=== PATIENT | male | born 1975 | race American Indian/Alaskan Native ===

== ENCOUNTER 2020-11-24 21:57 | Emergency (ER) | payer MEDICAID ==
[2020-11-24 22:17] VITALS: BP 154/96
[2020-11-25] MEDS ORDERED: IBUPROFEN 600 MG TAB PO ONE (00:08)
--- NOTE | 2020-11-25 00:11 | Event Note ---
ED Screening Note Date of service: 11/25/20 Time: 00:05 ED Screening Note: 45-year-old -Chinese male with a past medical history of hypertension presents to the emergency room for pain left neck at the base of the skull. Patient states is been there about for 5 days. States he has been taking see [facility] and took ibuprofen yesterday. Patient does admit to taking dietary pills garlic ibuprofen. He denies any trauma. Does smoke cigarettes. Primary care provider is in [place]. This initial assessment/diagnostic orders/clinical plan/treatment(s) is/are subject to change based on patients health status, clinical progression and re- assessment by fellow clinical providers in the ED. Further treatment and workup at subsequent clinical providers discretion. Patient/guardian urged not to elope from the ED as their condition may be serious if not clinically assessed and managed. Initial orders include:
[2020-11-25 00:40] LABS: Basophils # (Auto) 0.1 K/mm3 (0.0-0.1); Basophils % (Auto) 0.5 % (0.0-1.8); Eosinophils # (Auto) 0.2 K/mm3 (0.0-0.4); Eosinophils % (Auto) 2.4 % (0.0-4.3); Hematocrit 44.2 % (35.5-45.6); Hemoglobin 14.7 gm/dl (11.8-15.2); Lymphocytes % (Auto) 30.3 % (13.4-35.0); Mean Corpuscular HGB Conc 33 % (32-34); Mean Corpuscular Volume 87 fl (84-94); Monocytes # (Auto) 0.9 K/mm3 (0.0-0.8); Monocytes % (Auto) 9.4 % (0.0-7.3); Platelet Count 335 K/mm3 (140-440); Red Blood Count 5.06 M/mm3 (3.65-5.03); Red Cell Distribution Width 13.8 % (13.2-15.2)
[2020-11-25 01:02] LABS: BUN/Creatinine Ratio 13; Blood Urea Nitrogen 12 mg/dL (9-20); Calcium 9.3 mg/dL (8.4-10.2); Hemolysis Index 1
== END 2020-11-25 04:04 | disposition left against medical advice (07) ==
LOC: ED 21:57
DX: M54.2 Cervicalgia (principal); I10 Essential (primary) hypertension; Z53.21 Procedure and treatment not carried out due to patient leaving prior to being seen by health care provider
CPT/HCPCS: 36415; 80048; 85025

== ENCOUNTER 2021-11-12 18:04 | Emergency (ER) | payer MEDICAID, OTHER ==
[2021-11-12] MEDS ORDERED: fentaNYL 100 MCG/2 ML INJ IM ONE (18:25)
[2021-11-12] MEDS ORDERED: ONDANSETRON 4 MG/2 ML INJ IM ONE (18:25)
--- NOTE | 2021-11-12 18:30 | Emergency Department Report ---
HPI - General Chief Complaint: Headache Time Seen by Provider: 11/12/21 18:19 - HPI HPI: Room 3 The patient is a 46-year-old male present with chief complaint of headache and dizziness. The patient states 1 week ago while working on a ladder a piece of sheet rock fell and struck his head causing him to fall off the ladder. Patient sustained a laceration to the left periorbital region. He states he went to [facility] was evaluated with a scan and had sutures placed. Patient states he has not yet followed up however the following day he has had intermittent dizziness blurred vision in the left temporal and occipital headache. Patient states he takes Excedrin but only helps a small amount. Patient currently gives his pain a score of 8/10 ED Past Medical Hx - Past Medical History Hx Hypertension: Yes - Surgical History Past Surgical History?: No - Family History Family history: no significant - Social History Smoking Status: Current Every Day Smoker (1/3 pack/day) Substance Use Type: None (Denies illicit drug use), Alcohol (Occasional) - Medications Home Medications: Home Medications Medication Instructions Recorded Confirmed Last Taken Type HYDROcodone/APAP 5-325 [[place] 1 - 2 each PO Q6HR PRN #10 tablet 11/12/21 Unknown Rx 5/325] ED Review of Systems ROS: Stated complaint: MIGRAINE Other details as noted in HPI Constitutional: no symptoms reported Eyes: vision change ENT: denies: throat pain Respiratory: no symptoms reported Cardiovascular: denies: chest pain Endocrine: no symptoms reported Gastrointestinal: denies: abdominal pain Genitourinary: denies: dysuria Musculoskeletal: denies: back pain Neurological: headache Physical Exam - Physical Exam Vital Signs: Vital Signs 11/12/21 18:04 Pulse Rate 96 H Blood Pressure 152/100 [Left] O2 Sat by Pulse 99 Oximetry Physical Exam: GENERAL: The patient is well-developed well-nourished male lying on stretcher not appearing to be in acute distress. [] HEENT: Normocephalic. Atraumatic. Extraocular motions are intact. Patient has moist mucous membranes. NECK: Supple. Trachea midline CHEST/LUNGS: Clear to auscultation. There is no respiratory distress noted. HEART/CARDIOVASCULAR: Regular. There is no tachycardia. There is no gallop rub or murmur. ABDOMEN: Abdomen is soft, nontender. Patient has normal bowel sounds. There is no abdominal distention. SKIN: There is no rash. There is no edema. There is no diaphoresis. NEURO: The patient is awake, alert, and oriented. The patient is cooperative. The patient has no focal neurologic deficits. The patient has normal speech. Cranial nerves II through XII grossly intact MUSCULOSKELETAL: There is no evidence of acute injury. ED Course Vital Signs 11/12/21 18:04 Pulse Rate 96 H Blood Pressure 152/100 [Left] O2 Sat by Pulse 99 Oximetry - Reevaluation(s) Reevaluation #1: 11/12/21 19:50 Patient had sutures placed in his left periorbital region at outside hospital 7 days ago. These were removed by myself. I removed 5 sutures. ED Medical Decision Making - Radiology Data Radiology results: report reviewed (CT head), image reviewed (CT head) [facility] [address] [id number] Cat Scan Report Signed Patient: BUNNY LIND MR#: [id number] 6 : 1975 Acct:[id number] Age/Sex: 46 / M ADM Date: 11/12/21 Loc: ED Attending Dr: Ordering Physician: TONY HAMM MD Date of Service: 11/12/21 Procedure(s): CT head/brain wo con Accession Number(s): [id number] cc: TONY HAMM MD NONENHANCED CT SCAN OF THE HEAD: INDICATION / CLINICAL INFORMATION: 46 years Male; Headache and dizziness after fall 1 week ago. TECHNIQUE: Routine CT head without contrast. All CT scans at this location are performed using CT dose reduction for ALARA by means of automated exposure control. COMPARISON: None. FINDINGS: BRAIN / INTRACRANIAL CONTENTS: No intracranial sequela from the trauma; no scalp hematoma; No acute hemorrhage, mass effect, midline shift, hydrocephalus, or acute, large territorial infarct. No chronic infarct or focal atrophy. Normal brain volume and ventricular/sulcal size for age. No significant white matter abnormality. CRANIOCERVICAL JUNCTION: No significant abnormality. ORBITS: No significant abnormality of visualized orbits. SINUSES / MASTOIDS: No significant abnormality of the visualized paranasal sinuses or mastoid air cells. ADDITIONAL FINDINGS: None. IMPRESSION: No intracranial sequela from the trauma Signer Name: Heidy Stephen MD Signed: 11/12/2021 7:06 PM Workstation Name: [email or web address] Transcribed By: BS Dictated By: Heidy Kumar MD Electronically Authenticated By: Heidy Kumar MD Signed Date/Time: 11/12/211905 DD/ 99 TD/TT: - Differential Diagnosis Postconcussive syndrome, ICH, migraine, hypertensive urgency Critical care attestation.: If time is entered above; I have spent that time in minutes in the direct care of this critically ill patient, excluding procedure time. ED Disposition Clinical Impression: Postconcussive syndrome, Headache Disposition: 01 HOME / SELF CARE / HOMELESS Is pt being admited?: No Does the pt Need Aspirin: No Condition: Stable Instructions: Post-Concussion Syndrome Additional Instructions: Return to the emergency department should you develop worsening symptoms, inability to tolerate food or liquids, high fever or any other concerns Prescriptions: HYDROcodone/APAP 5-325 [[place] 5/325] 1 - 2 each PO Q6HR PRN #10 tablet PRN Reason: Pain Referrals: SANGEETHA SANTIAGO MD [Staff Physician] - 3-5 Days [facility] [Provider Group] - 3-5 Days Time of Disposition: 19:51
--- NOTE | 2021-11-12 19:11 | Cat Scan Report ---
NONENHANCED CT SCAN OF THE HEAD: INDICATION / CLINICAL INFORMATION: 46 years Male; Headache and dizziness after fall 1 week ago. TECHNIQUE: Routine CT head without contrast. All CT scans at this location are performed using CT dos e reduction for ALARA by means of automated exposure control. COMPARISON: None. FINDINGS: BRAIN / INTRACRANIAL CONTENTS: No intracranial sequela from the trauma; no scalp hematoma; No acute h emorrhage, mass effect, midline shift, hydrocephalus, or acute, large territorial infarct. No chronic infarct or focal atrophy. Normal brain volume and ventricular/sulcal size for age. No significant wh ite matter abnormality. CRANIOCERVICAL JUNCTION: No significant abnormality. ORBITS: No significant abnormality of visualized orbits. SINUSES / MASTOIDS: No significant abnormality of the visualized paranasal sinuses or mastoid air leigh ls. ADDITIONAL FINDINGS: None. IMPRESSION: No intracranial sequela from the trauma Signer Name: Heidy Stephen MD Signed: 11/12/2021 7:06 PM Workstation Name: [email or web address]
[2021-11-12 20:02] VITALS: BP 141/91
== END 2021-11-12 20:17 | disposition home or self-care (01) ==
LOC: ED 18:04
DX: R51.9 Headache, unspecified (principal); F07.81 Postconcussional syndrome; F17.200 Nicotine dependence, unspecified, uncomplicated; I10 Essential (primary) hypertension
CPT/HCPCS: 70450; 96372; 99284; J2405; J3010